=== PATIENT | female | born 1940 | race Caucasian/White ===

== ENCOUNTER 2025-05-23 03:12 | Emergency (ER) | payer MEDICARE, OTHER ==
[~2025-05-23] VITALS: Ht 165.1 cm; Wt 62.6 kg
[2025-05-23] MEDS ORDERED: DONE5TAB34 PO (03:32)
[2025-05-23] MEDS ORDERED: SERT25TA PO (03:32)
[2025-05-23] MEDS ORDERED: ROSU20TA2 PO (03:32)
[2025-05-23] MEDS ORDERED: MELA10TA3 PO (03:32)
[2025-05-23] MEDS ORDERED: TRAZ-182 PO (03:32)
[2025-05-23] MEDS ORDERED: ALEN70TA80 PO (03:32)
[2025-05-23] MEDS ORDERED: QUET50TA PO (03:32)
[2025-05-23 04:08] VITALS: BP 143/97
[2025-05-23 04:44] LABS: PLATELET COUNT (AUTO) 203 K/uL (179-408); RED BLOOD CELL COUNT(AUTO) 4.31 MIL/uL (3.63-4.92); RED CELL DISTRIBUTION WIDTH 14.3 % (12.3-17.7); WHITE BLOOD COUNT (AUTO) 7.0 K/uL (3.8-11.8)
[2025-05-23 04:51] LABS: CREATININE 0.9 mg/dL (0.6-1.3); SODIUM SERUM 142 mmol/L (136-145); UREA NITROGEN, BLOOD 26 mg/dL (7-18)
[2025-05-23 04:58] LABS: ASPARTATE AMINOTRANSFERASE 26 U/L (15-37); TOTAL PROTEIN, SERUM 7.9 g/dL (6.4-8.2)
[2025-05-23] MEDS ORDERED: ACETAMINOPHEN 500 MG TABLET ONE (06:27)
[2025-05-23] MEDS: ACETAMINOPHEN 500 MG TABLET PO ONE (06:36)
[2025-05-23 07:03] VITALS: BP 143/97; O2SAT 97
== END 2025-05-23 07:04 | disposition home or self-care (01) ==
LOC: ER 03:19
DX: S00.12XA Contusion of left eyelid and periocular area, initial encounter (principal); F03.90 Unspecified dementia, unspecified severity, without behavioral disturbance, psychotic disturbance, mood disturbance, and anxiety; Z79.899 Other long term (current) drug therapy; S00.03XA Contusion of scalp, initial encounter; R41.82 Altered mental status, unspecified; W01.0XXA Fall on same level from slipping, tripping and stumbling without subsequent striking against object, initial encounter; Y93.89 Activity, other specified; Y92.89 Other specified places as the place of occurrence of the external cause; Y99.9 Unspecified external cause status
CPT/HCPCS: 36415; 70450; 70486; 72125; 84484; 85025; 85730; A4606; A4663; A9150